=== PATIENT | female | born 1945 | race Caucasian/White ===

== ENCOUNTER → 2019-12-03 | Outpatient (CLI) | payer MEDICARE ==
--- NOTE | 2019-12-03 09:08 | KCIC ---
Abdominal ultrasound 12/03/2019 INDICATION: Epigastric pain COMPARISON STUDY: None FINDINGS: Ultrasound evaluation of the abdomen was performed. Static images are submitted to PACS. Visualized portions of the aorta demonstrate changes of atherosclerotic vascular disease but otherwise unremarkable. Visualized pancreas is unremarkable. Visualized IVC is unremarkable. The liver is normal in size measuring approximately 16 cm longitudinally. There is diffuse increase in hepatic echogenicity which while nonspecific most commonly reflects hepatic steatosis. Portal venous flow appears to be normal direction. The common bile duct measures 8 mm in diameter. The gallbladder is surgically absent. Diameter of the common bile duct is therefore within normal limits for age and postcholecystectomy state. The right kidney measures 9.8 cm in length. There is a 2.2 cm cyst within the superior pole the right kidney. Spleen is unremarkable in appearance measuring 9.3 cm longitudinally. Left kidney is normal in appearance measuring 9.3 cm in length. IMPRESSION: 1. No sonographic evidence of acute intra-abdominal abnormality 2. Probable mild hepatic steatosis 3. 2.2 cm cyst, superior pole right kidney 4. Prior cholecystectomy Electronically signed by: Mike Fagan MD (12/03/2019 9:05 AM) [id number]
== END ==
LOC: KCIC US 07:59
PROVIDERS: ATTEND Physician Assistant
DX: K76.0 Fatty (change of) liver, not elsewhere classified (principal); N28.1 Cyst of kidney, acquired; Z90.49 Acquired absence of other specified parts of digestive tract
CPT/HCPCS: 76700